=== PATIENT | male | born 1965 | race Two or more races ===

== ENCOUNTER 2017-04-29 08:25 | Emergency (ER) | payer OTHER ==
[2017-04-29 08:38] VITALS: BP 172/104; PULSE 66; RESP 20; TEMP 98.6; O2SAT 96
--- NOTE | 2017-04-29 08:43 | EDPHY ---
H & P Time Seen by Provider: 04/29/17 08:43 HPI/ROS: CHIEF COMPLAINT: Odontalgia HISTORY OF PRESENT ILLNESS: 51-year-old male complaining of pain to tooth 13. [facility] [place], had a filling placed complaining of continued pain not relieved with Tylenol and/or Motrin. No trismus no drooling. No fever no chills. No change in voice. He has an appointment with his dentist on Monday (today is Monday). PRIMARY CARE PROVIDER: REVIEW OF SYSTEMS: A ten point review of systems was performed and is negative with the exception of the items mentioned in the HPI PHYSICAL EXAM (Prior to examination, patient consented to physical exam, hands were washed and my usual and customary physical exam procedures followed) 1) GENERAL: Well-developed, well-nourished, alert and oriented. Appears to be in no acute distress. 2) HEAD: Normocephalic 3) HEENT: sclera anicteric. No trismus no drooling. Tooth 13. Is tender to percussion with no evidence of apical abscess. Floor of mouth soft with no evidence of Tanner's angina. Submental and submandibular spaces are soft. 4) LUNGS: Breathing comfortably. Smoking Status: Never smoked Constitutional: Initial Vital Signs Temperature (C) 37 C 04/29/17 08:34 Heart Rate 66 04/29/17 08:34 Respiratory Rate 20 04/29/17 08:34 Blood Pressure 172/104 H 04/29/17 08:34 O2 Sat (%) 96 04/29/17 08:34 O2 Delivery Mode Room Air Allergies/Adverse Reactions: No Known Allergies Allergy (Unverified 04/29/17 08:32) Home Medications: Medication Instructions Recorded Advil 04/29/17 Coreg 04/29/17 HCTZ (*) 04/29/17 Hydrocodone/APAP 5/325 [Pamplico 1 tab PO Q6 PRN #15 tab 04/29/17 5/325 (RX)] Tylenol 04/29/17 ED Images - Head Mouth: 1 - Dental filling MDM/Departure - MDM Procedures: Procedure: Dental nerve block Indication: Odontalgia Indications risks benefits discussed with patient and he consents. 0.5% bupivacaine administered usual and customary fashion achieving localized anesthesia. Patient tolerated seizure while ED Course/Re-evaluation: No evidence of abscess or deep space infection. No indication for imaging. Recommend he keep his appointment. Agreed to dental nerve block achieving localized anesthesia. Plan will be discharge home with analgesia usual customary odontogenic precautions instructions. He feels comfortable with this discharge plan. Care of patient under supervision of primary supervising physician Dr Louise . - Depart Disposition: Home, Routine, Self-Care Clinical Impression: Tooth ache Condition: Good Instructions: Toothache (ED) Additional Instructions: Return to the ER immediately if you cannot swallow, have drooling, fevers, neck stiffness, cannot open your jaw, or any other symptoms that concern you. Prescriptions: Hydrocodone/APAP 5/325 [Pamplico 5/325 (RX)] 1 tab PO Q6 PRN #15 tab PRN Reason: Pain, Severe [facility] - [facility] ([facility] your [facility] this Monday)
== END 2017-04-29 09:20 | disposition home or self-care (01) ==
PROC: 3E0X3BZ Introduction of Anesthetic Agent into Cranial Nerves, Percutaneous Approach (ICD-10-PCS; principal; 2017-04-29)
DX: K08.89 Other specified disorders of teeth and supporting structures (principal)

== ENCOUNTER 2017-04-30 18:50 | Emergency (ER) | payer OTHER ==
[2017-04-30 18:57] VITALS: BP 183/92; PULSE 69; RESP 16; TEMP 98.6; O2SAT 96
--- NOTE | 2017-04-30 19:14 | EDPHY ---
H & P Time Seen by Provider: 04/30/17 19:04 HPI/ROS: CHIEF COMPLAINT: Dental pain HISTORY OF PRESENT ILLNESS: Patient was here yesterday. He saw his dentist on Monday at [facility] and [place] and had 2 fillings placed 1 and upper and 1 on a lower molar on the left side. He was treated with dental block which lasted for 6 hr and then the pain reoccurred but today he has worse pain in the left lower posterior molar which also had a procedure performed. He has appointment with his dentist the day after tomorrow. No fevers or chills. No jaw or face swelling. No earache. Is worse with hot liquids. REVIEW OF SYSTEMS: No trouble breathing or swallowing. No chest pain or shortness of breath. PAST MEDICAL HISTORY: Hypertension, myocardial infarction in 2012 Social history: management analyst present in the room General Appearance: Alert and conversant, cooperative. No trismus. No pharyngeal erythema or exudate. Upper teeth are not tender to palpation. Left posterior molar has surrounding gum swelling and is exquisitely tender to palpation. No trouble breathing or swallowing. Emergency Department course/MDM: Clearly has acute dental pain in the context of recent dental work would treat with amoxicillin and the patient requests nerve block. Inferior alveolar nerve block performed with 3 cc of 0.5% Sensorcaine. Oral amoxicillin and dental follow-up as scheduled. Smoking Status: Never smoked Constitutional: Initial Vital Signs Temperature (C) 37.0 C 04/30/17 18:54 Heart Rate 69 04/30/17 18:54 Respiratory Rate 16 04/30/17 18:54 Blood Pressure 183/92 H 04/30/17 18:54 O2 Sat (%) 96 04/30/17 18:54 O2 Delivery Mode Room Air Allergies/Adverse Reactions: No Known Allergies Allergy (Verified 04/30/17 18:53) Home Medications: Medication Instructions Recorded Advil 04/29/17 Coreg 04/29/17 HCTZ (*) 04/29/17 Hydrocodone/APAP 5/325 [[place] 1 tab PO Q6 PRN #15 tab 04/29/17 5/325 (RX)] Tylenol 04/29/17 Amoxicillin Trihydrate 500 mg PO TID 7 Days cap 04/30/17 [Amoxicillin] MDM/Departure - MDM Medications Given: Discontinued Medications Amoxicillin (Amoxil Chewable 250 Mg Prepack#4) 1 btl TAKEHOME EDNOW ONE PRN Reason: Protocol Stop: 04/30/17 19:22 Last Admin: 04/30/17 19:29 Dose: 1 btl Ibuprofen (Motrin) 600 mg PO EDNOW ONE Stop: 04/30/17 19:22 Last Admin: 04/30/17 19:25 Dose: 600 mg Oxycodone/Acetaminophen (Percocet 5/325) 1 tab PO EDNOW ONE Stop: 04/30/17 19:22 Last Admin: 04/30/17 19:29 Dose: 1 tab - Depart Disposition: Home, Routine, Self-Care Clinical Impression: Tooth infection Condition: Good Instructions: Amoxicillin (By mouth), Toothache (ED) Prescriptions: Amoxicillin Trihydrate [Amoxicillin] 500 mg PO TID 7 Days cap [facility]errals: [facility] - 05/02/17 Print Language: Urdu
[2017-04-30] MEDS ORDERED: OXYCODONE/APAP 5/325 TAB PO ONE (19:21)
[2017-04-30] MEDS ORDERED: AMOXICILLIN 250 MG PREPACK#4 BTL TAKEHOME ONE (19:21)
[2017-04-30] MEDS ORDERED: IBUPROFEN 600 MG TAB PO ONE (19:21)
== END 2017-04-30 19:53 | disposition home or self-care (01) ==
PROC: 3E0X3BZ Introduction of Anesthetic Agent into Cranial Nerves, Percutaneous Approach (ICD-10-PCS; principal; 2017-04-30)
DX: K04.7 Periapical abscess without sinus (principal); I10 Essential (primary) hypertension; I25.2 Old myocardial infarction

== ENCOUNTER 2018-01-13 20:05 | Emergency (ER) | payer OTHER ==
--- NOTE | 2018-01-13 20:30 | EDPHY ---
H & P Stated Complaint: pt concerned about elevated bp x 1 week, boland/neck pain x 3-4 days Source: Patient Exam Limitations: No limitations - Medical/Surgical History Hx Asthma: No Hx Chronic Respiratory Disease: No Hx Diabetes: No Hx Cardiac Disease: Yes Hx Renal Disease: No Hx Cirrhosis: No Hx Alcoholism: No Hx HIV/AIDS: No Hx Splenectomy or Spleen Trauma: No Other PMH: HTN, OR 2013 - cardiac stents, hyperlipidemia - Social History Smoking Status: Never smoked Time Seen by Provider: 01/13/18 20:29 HPI/ROS: HPI: This is a 52-year-old male who presents with Chief Complaint: pt concerned about elevated bp x 1 week, boland/neck pain x 3-4 days Location: Heart Quality: Elevated blood pressure Duration: 1 week Signs and Symptoms: no shortness of breath at rest, no shortness of breath on exertion, no cough, no chest pain, no palpitations, no lower extremity edema, no wheezing, no orthopnea, no paroxysmal nocturnal dyspnea, no fever, no injury/ trauma, no hemoptysis, no carpal pedal spasms, no abdominal pain Timing: Daily Severity: [id number] Context: Patient has a history of hypertension, takes Coreg and hydrochlorothiazide, history of OR in 2013 with cardiac stent x1, takes aspirin 325 mg, followed by Renetta kuo, unsure provider name, presents with complaints of elevated blood pressure of systolic 140s and diastolic 90s over the last week accompanied by feeling of dizziness and headache. Dizziness is worsened with changes in position especially sitting to standing. His headache is generalized and dull and aching knee and nonradiating in nature. Patient denies any cough, fever, chest pain, shortness of breath, lower extremity edema. He denies any increased stress and has not been working as much lately. Patient has a history of hyperlipidemia but stopped taking statin 1 year ago due to side effect of dizziness. Patient complains of lower back pain over the last 3-4 days that is nonradiating in nature and bilateral. No recent heavy lifting or trauma. Modifying Factors: None Comment: ROS: A comprehensive 10 system review of systems is otherwise negative aside from elements mentioned in the history of present illness. MEDICAL/SURGICAL/SOCIAL HISTORY: Medical history: HTN, OR 2013 - cardiac stents, hyperlipidemia Surgical history: Denies Social history: Nonsmoker. CONSTITUTIONAL: Overweight polite and cooperative nontoxic-appearing male, awake and alert, no obvious distress HEENT: Atraumatic and normocephalic, PERRL, EOMI. Nares patent; no rhinorrhea; no nasal mucosal edema. Tympanic membranes clear. Oropharynx clear, no exudate and moist pink mucosa. Airway patent. No lymphadenopathy. No meningismus. No carotid bruits. Cardiovascular: Normal S1/S2, regular rate, regular rhythm, without murmur rub or gallop. PULMONARY/CHEST: Symmetrical and nontender. Clear to auscultation bilaterally. Good air movement. No accessory muscle usage. ABDOMEN: Soft, nondistended, nontender, no rebound, no guarding, no peritoneal signs, no masses or organomegaly. No CVAT, no abdominal bruits noted. EXTREMITIES: 2/2 pulses, strength 5/5, no deformities, no clubbing, no cyanosis or edema. NEUROLOGICAL: no focal neuro deficits. GCS 15. SKIN: Warm and dry, no erythema. no rash. Good capillary refill. (Stephanie Kirk) Constitutional: Initial Vital Signs Temperature (C) 36.4 C 01/13/18 20:12 Heart Rate 72 01/13/18 20:12 Respiratory Rate 16 01/13/18 20:12 Blood Pressure 145/102 H 01/13/18 20:12 O2 Sat (%) 95 01/13/18 20:12 O2 Delivery Mode Room Air Allergies/Adverse Reactions: No Known Allergies Allergy (Verified 01/13/18 20:20) Home Medications: Medication Instructions Recorded Advil 04/29/17 Coreg 04/29/17 HCTZ (*) 04/29/17 Tylenol 04/29/17 Cyclobenzaprine [Flexeril 10 MG 10 mg PO TID PRN #10 tab 01/13/18 (*)] Lidocaine [Lidoderm] 1 each TP Q12 #6 adh..patch 01/13/18 Medical Decision Making - Diagnostics Imaging Results: Imaging Impressions Lumbar Spine X-Ray 01/13/18 20:38 Impression: 1. Mild levolumbar scoliosis. 2. [id number] lumbar degenerative spondylosis and facet osteoarthropathy. ED Course/Re-evaluation: Vital signs reviewed and stable upon arrival. Blood pressure initially 145/ 102. Repeat blood pressure approximately 10 min later was 115/50. Orthostatics vitals obtained and negative. Given 500 cc normal saline EKG, lumbosacral x-ray, and laboratory studies ordered. Suspect patient no longer requires Coreg and hydrochlorothiazide. EKG my read shows normal sinus rhythm with rate of 75 beats per minute with no acute ischemic changes. 2058: Notified by [facility] that troponin is 0 2107: Lumbosacral x-ray my read via PAC shows mild degenerative changes. Given Lidoderm patch and Flexeril prescription. 2114: Labs reviewed. No signs of leukocytosis, anemia, acute kidney injury, electrolyte imbalance. No signs of neurovascular compromise/tenting of skin/compartment syndrome/ extremities and joints examined above and below area of concern and are neurovascularly intact/cauda equina syndrome/AAA/hypertensive urgency. This patient was seen under the supervision of my secondary supervising physician. I evaluated care for this patient independently. Discussed this patient with Dr. Moya. (Stephanie Kirk) Differential Diagnosis: Dizziness including but not limited to peripheral and central causes of vertigo , orthostatic causes including dehydration, and blood loss. (Stephanie Kirk) Other Provider: PHYSICIAN DOCUMENTATION: The patient was evaluated and managed by the Physician Rabbler and myself. I have reviewed the chart and agree with the findings and plan of care as documented. In addition, I examined the patient myself at 2129. History confirmed as back pain worse with movement. Physical findings as follows: No abdominal tenderness, no pulsatile abdominal mass. Normal bilateral femoral pulses. I think abdominal aortic aneurysm unlikely. I am the secondary supervising physician. (Cliff Moya) - Data Points Laboratory Results: Laboratory Results 01/13/18 20:45 01/13/18 20:45 01/13/18 01/13/18 01/13/18 20:48 20:45 20:45 WBC 7.69 10^3/uL 10^3/uL (3.80-9.50) RBC 5.85 10^6/uL 10^6/uL (4.40-6.38) Hgb 17.7 g/dL H g/dL (13.7-17.5) Hct 48.9 % % (40.0-51.0) MCV 83.6 fL fL (81.5-99.8) MCH 30.3 pg pg (27.9-34.1) MCHC 36.2 g/dL g/dL (32.4-36.7) RDW 13.0 % % (11.5-15.2) Plt Count 236 10^3/uL 10^3/uL (150-400) MPV 9.1 fL fL (8.7-11.7) Neut % (Auto) 55.6 % % (39.3-74.2) Lymph % (Auto) 31.9 % % (15.0-45.0) [place] % (Auto) 8.3 % % (4.5-13.0) Eos % (Auto) 3.3 % % (0.6-7.6) Baso % (Auto) 0.5 % % (0.3-1.7) Nucleat RBC Rel Count 0.0 % % (0.0-0.2) Absolute Neuts (auto) 4.28 10^3/uL 10^3/uL (1.70-6.50) Absolute Lymphs (auto) 2.45 10^3/uL 10^3/uL (1.00-3.00) Absolute Monos (auto) 0.64 10^3/uL 10^3/uL (0.30-0.80) Absolute Eos (auto) 0.25 10^3/uL 10^3/uL (0.03-0.40) Absolute Basos (auto) 0.04 10^3/uL 10^3/uL (0.02-0.10) Absolute Nucleated RBC 0.00 10^3/uL 10^3/uL (0-0.01) Immature Gran % 0.4 % % (0.0-1.1) Immature Gran # 0.03 10^3/uL 10^3/uL (0.00-0.10) Sodium 137 mEq/L mEq/L (135-145) Potassium 3.9 mEq/L mEq/L (3.3-5.0) Chloride 102 mEq/L mEq/L (97-110) Carbon Dioxide 21 mEq/l L mEq/l (22-31) Anion Gap 14 mEq/L mEq/L (6-14) BUN 17 mg/dL mg/dL (7-23) Creatinine 0.8 mg/dL mg/dL (0.7-1.3) Estimated GFR > 60 Glucose 124 mg/dL H mg/dL (70-100) Calcium 9.9 mg/dL mg/dL (8.5-10.4) POC Troponin I 0.00 ng/mL ng/mL (0.00-0.08) Medications Given: Discontinued Medications Sodium Chloride (Ns) 500 mls @ 1,000 mls/hr IV EDNOW ONE PRN Reason: Protocol Stop: 01/13/18 21:07 Last Admin: 01/13/18 21:19 Dose: 500 mls Point of Care Test Results: Chemistry 01/13/18 20:48 POC Troponin I 0.00 ng/mL ng/mL (0.00-0.08) Departure - Departure Disposition: Home, Routine, Self-Care Clinical Impression: Essential hypertension, Lumbar degenerative disc disease Condition: Good Instructions: Heart Healthy Diet (ED), Hypertension (ED), Degenerative Disc Disease (ED) Additional Instructions: Please follow heart healthy diet and limit salt intake. Continue to take blood pressure medications as directed. Consume a minimum of 8-10 glasses of water or electrolyte fluid replacement drinks that include Gatorade, Powerade, Pedialyte. Take Flexeril as needed for muscle spasm. Use Lidoderm patch as needed for lower back pain. Avoid lifting greater than 15 lb and used proper lifting techniques. Follow-up with primary care provider in the next 3-5 days to discuss blood pressure medications and lumbar degenerative disc disease. Oumara Regrese a la heidi de emergencia de inmediato si siente dolor de espalda nuevo o que empeora, tiene fiebre/escalofros, sntomas similares a la influenza, incontinencia o incapacidad de orinar o defecar, debilidad, parlisis u otros s ntomas que le preocupan. Referrals: Balbir Esposito MD [Primary Care Provider] - As per Instructions Prescriptions: Cyclobenzaprine [Flexeril 10 MG (*)] 10 mg PO TID PRN #10 tab PRN Reason: Spasms Lidocaine [Lidoderm] 1 each TP Q12 #6 adh..patch
[2018-01-13] MEDS ORDERED: NS 500 ML IV ONE (20:38)
--- NOTE | 2018-01-13 20:51 | CPEKG ---
Test Reason : OPEN Blood Pressure : / mmHG Vent. Rate : 075 BPM Atrial Rate : 075 BPM P-R Int : 187 ms QRS Dur : 085 ms QT Int : 358 ms P-R-T Axes : 021 -35 020 degrees QTc Int : 400 ms Sinus rhythm Inferior infarct, old Confirmed by Cliff Moya ([id number]) on 01/13/2018 8:51:18 PM Referred By: Confirmed By:Cliff Moya
[2018-01-13 20:53] LABS: PLATELET COUNT 236 10^3/uL (150-400)
[2018-01-13 22:12] VITALS: BP 121/80
== END 2018-01-13 22:11 | disposition home or self-care (01) ==
DX: I10 Essential (primary) hypertension (principal); M51.36 Other intervertebral disc degeneration, lumbar region; E86.9 Volume depletion, unspecified; I25.2 Old myocardial infarction; E78.5 Hyperlipidemia, unspecified; Z95.5 Presence of coronary angioplasty implant and graft
CPT/HCPCS: 84484-PO